=== PATIENT | female | born 1975 | race Asian ===

== ENCOUNTER 2017-06-16 10:01 | Outpatient (CLI) | payer BC ==
[~2017-06-16] VITALS: Ht 149.9 cm; Wt 65.3 kg
[~2017-06-16 10:01] MED LIST: ACET-168 PO; ACHD5005 PO; DCS100C PO; IBP600T1 PO; IRON150C6 PO; PREN-93 PO
[2017-06-16] MEDS ORDERED: PREN-102 PO (13:45)
== END 2017-06-16 15:06 ==
LOC: PREOP 10:01
PROVIDERS: ATTEND Obstetrics & Gynecology
DX: Z01.818 Encounter for other preprocedural examination (principal); O02.1 Missed abortion

== ENCOUNTER 2017-06-18 06:02 | Day surgery (SDC) | payer BC ==
[~2017-06-18] VITALS: Ht 149.9 cm; Wt 65.3 kg
[~2017-06-18 06:02] MED LIST changes: +PREN-102 PO
[2017-06-18] MEDS: LACTATED RINGERS 1,000 ML IV PRN ×2 (06:50→08:25)
[2017-06-18] MEDS ORDERED: proPOfol 200 MG/20 ML (DIPRIVAN) VIAL IV ONE (06:53)
[2017-06-18] MEDS ORDERED: ONDANSETRON 4 MG/2 ML (SDV) Z0FRAN ONE (06:53)
[2017-06-18] MEDS ORDERED: LIDOCAINE PF 2% 5 ML (XYLOCAINE) VIAL ONE (06:53)
[2017-06-18] MEDS ORDERED: SEVOFLURANE (ULTANE) 15 ML INHAL SOLN ONE (06:53)
[2017-06-18] MEDS ORDERED: fentaNYL INJECTION 100 MCG/2 ML AMP ONE (06:53)
[2017-06-18] MEDS ORDERED: DEXAMETHASONE 10 MG/ML (DECADRON) 1 ML VIAL ONE (06:53)
[2017-06-18] MEDS ORDERED: MIDAZOLAM 2 MG/2 ML (VERSED) VIAL ONE (06:53)
[2017-06-18 07:08] LABS: BASOPHILS # (AUTO) 0.1 10^3/uL (0.0-0.1); BASOPHILS % (AUTO) 1 % (0-10); EOSINOPHILS # (AUTO) 0.2 10^3/uL (0.0-0.3); EOSINOPHILS % (AUTO) 2 % (0-10); HEMATOCRIT 39 % (35-52); HEMOGLOBIN 13.4 G/DL (11.5-16.0); LYMPHOCYTES # (AUTO) 2.7 X 10^3 (1.0-4.0); LYMPHOCYTES % (AUTO) 29 % (12-44); MEAN CORPUSCULAR HEMOGLOBIN 29 PG (25-34); MEAN CORPUSCULAR HGB CONC 35 G/DL (32-36); MEAN CORPUSCULAR VOLUME 84 FL (80-99); MEAN PLATELET VOLUME 10.7 FL (7.4-10.4); MONOCYTES # (AUTO) 0.5 X 10^3 (0.0-1.0); MONOCYTES % (AUTO) 5 % (0-12); NEUTROPHILS # (AUTO) 5.8 X 10^3 (1.8-7.8); NEUTROPHILS % (AUTO) 63 % (42-75); PLATELET COUNT 268 10^3/uL (130-400); RED BLOOD COUNT 4.61 10^6/uL (4.35-5.85); RED CELL DISTRIBUTION WIDTH 13.3 % (10.0-14.5); WHITE BLOOD COUNT 9.3 10^3/uL (4.3-11.0)
[2017-06-18 07:09] VITALS: BP 102/63
[2017-06-18] MEDS ORDERED: D5 LR IV SOLUTION 1,000 ML IV SCH (07:55)
--- NOTE | 2017-06-18 07:58 | Progress Note-Pre Operative ---
Pre-Operative Progress Note H&P Reviewed The H&P was reviewed, patient examined and no changes noted. Date Seen by Provider: Jun 18, 2017 Time Seen by Provider: 07:56 Date H&P Reviewed: Jun 18, 2017 Time H&P Reviewed: 07:56 Pre-Operative Diagnosis: Missed AWA Miguel DO Jun 18, 2017 07:58
[2017-06-18] MEDS ORDERED: IBUP-1773 PO (07:59)
[2017-06-18] MEDS ORDERED: ACHD5005 PO (07:59)
[2017-06-18] MEDS ORDERED: KETOROLAC 30 MG/ML VIAL IVP ONE (08:00)
[2017-06-18] MEDS ORDERED: HYDROcodone/APAP 5 MG/325 MG (LORTAB) TAB PO PRN (08:00)
[2017-06-18] MEDS ORDERED: ONDANSETRON 4 MG/2 ML (SDV) Z0FRAN IVP PRN ×2 (08:00→09:00)
--- NOTE | 2017-06-18 08:00 | Discharge Inst-Women's Service ---
Discharge Inst-Women's Serv Depart Medication/Instructions New, Converted or Re-Newed RX: RX on Chart Consults/Follow Up Additional Follow Up: Yes Activity Activity: Activity as Tolerated Driving Instructions: You May Drive (do not drive while taking hydrocodone) NO SMOKING: NO SMOKING Nothing Inside Vagina: No Douching, No [place] (x 2 weeks), No Tampons Diet Discharge Diet: No Restrictions Symptoms to Report to : Bleeding Excessive, Pain Increased, Fever Over 101 Degrees F, Vaginal Bleeding Increase, Questions/Concerns For Any Problems or Questions: Contact Your Physician Skin/Wound Care Bathing Instructions: Shower (x 1 week) AWA KHAN DO Jun 18, 2017 08:00
[2017-06-18 09:35] VITALS: BP 97/56
[2017-06-18 10:05] VITALS: BP 96/54
[2017-06-18 10:20] VITALS: BP 98/57
[2017-06-18] MEDS ORDERED: IBUPROFEN 600 MG (MOTRIN) TAB PO SCH (12:00)
--- NOTE | 2017-06-18 13:37 | OPERATIVE REPORT ---
DATE OF SERVICE: PREOPERATIVE DIAGNOSES: 1. 42-year-old G2, P1 at 6 weeks' gestation. 2. Missed . POSTOPERATIVE DIAGNOSES: 1. 42-year-old G2, P1 at 6 weeks' gestation. 2. Missed . PROCEDURE: Suction D and C. SURGEON: Dr. Kevin Ruelas. ANESTHESIA: LMA. ESTIMATED BLOOD LOSS: 300 mL. URINE OUTPUT: 10 mL clear urine drained at the beginning of the procedure. FLUIDS: 1200 mL lactated Ringer's solution. FINDINGS: Small to moderate amount of products of conception with a mildly enlarged uterus approximately 8 week size. Normal appearing vaginal mucosa and cervix. SPECIMEN SENT: Products of conception. INDICATIONS FOR PROCEDURE: This 42-year-old female was coming into my office earlier this week for new and intake examination at that point. Ultrasound was performed which showed a very small, approximately 5 to 6-week pole with no cardiac activity. Repeat beta hCG showed a declining level. I discussed with the patient and her later that week that this was a missed AB and I discussed what this meant. She was given the option for conservative waiting and watching to see if would pass on its own. She is also given the option of proceeding with suction D and C. Risks of the procedure were discussed with her and her in detail. After all their questions were answered today, they agreed to proceed with suction D and C. Consent was obtained in the preoperative area and the patient was taken to the operating room. OPERATIVE REPORT IN DETAIL: Once in the operating room, general anesthesia was found to be adequate. She was placed in dorsal lithotomy position, prepped and draped in normal sterile fashion. Straight catheterization was used to drain the bladder. I then placed a weighted speculum into the patient's vagina. A right angle retractor was used to visualize the cervix it was grasped at 12 o' clock position using a long Allis clamp. I then gently dilated the cervix using Hegar dilators to maximum dilatation approximately 8 mm. I then introduced an 8 cm Lagrange suction tip that is rigid into the endometrial canal and then attached the Jalne suction device and is activated to a pressure 55 mmHg, at which point I methodically cleared the endometrial contents by rotating the Lagrange suction curette. This was done on several different passes until there seems to be no further tissue removed. I then removed the Lagrange curette and performed a gentle sharp curettage. There is no evidence of retained products. One final pass with the Lagrange curette was made after which there is minimal cervical bleeding noted. I then removed all the instruments from the patient's vagina. The patient tolerated the procedure well and sent to recovery area in stable condition. Lap and sponge counts were correct at the end of the procedure. Instruments counts are correct as well. Job ID: [id number] DocumentID: [id number] Dictated Date: 06/18/2017 08:43:23 Tool Rental Technician Date: 06/18/2017 13:36:33 Dictated By: DO CARLA WILSON
== END 2017-06-18 10:20 | disposition home or self-care (01) ==
LOC: SDC 06:02
PROVIDERS: ATTEND Obstetrics & Gynecology
DX: O02.1 Missed abortion (principal)
CPT/HCPCS: 36415; 85025; 86850; 86900; 86901; 87081; 94664

== ENCOUNTER → 2018-01-06 | Outpatient (CLI) | payer BC ==
[~2018-01-06] MED LIST changes: +IBUP-1773 PO
== END ==
LOC: RAD 09:58
PROVIDERS: ATTEND Internal Medicine
DX: Z12.31 Encounter for screening mammogram for malignant neoplasm of breast (principal)
CPT/HCPCS: 77067